=== PATIENT | female | born 1980 | race Caucasian/White ===

== ENCOUNTER 2016-08-21 23:05 | Emergency (ER) | payer BC, MEDICAID ==
--- NOTE | 2016-08-21 23:23 | Emergency Department Record ---
History of Present Illness - General Chief complaint: Dental Stated complaint: DENTAL PAIN Time Seen by Provider: 08/21/16 23:22 Source: Patient Mode of Arrival: Ambulatory Limitations: No limitations - History of Present Illness Initial comments: The patient is here due to having multiple episodes of vomiting today with nausea. She denies any AP, diarrhea, fever, chills, or back pain but does have chronic dental pain. She is concerned that the dental issue is causing the vomiting. She has been taking a lot of Motrin for pain today and feels that may be causing the vomiting. Presently she is feeling better and is only mildly nauseated. The patient is also currently on her Menses. MD complaint: Tooth pain, Other Onset/Timin -: Days(s) Severity scale (1-10): 10 Quality: Aching Consistency: Constant Improves with: None Worsens with: Eating, Other Context- Dental: History of dental caries Associated Symptoms: Other - Related Data Previous Rx's Medication Instructions Recorded Amoxicillin 500 mg PO TID #21 capsule 08/22/16 Naproxen [Naprosyn] 250 mg PO BID #14 tablet 08/22/16 Ondansetron [Zofran Odt] 4 mg SL .Q4-6H PRN #12 tab.rapdis 08/22/16 Allergies Allergy/AdvReac Type Severity Reaction Status Date / Time erythromycin base Allergy RASH Verified 08/21/16 23:16 Travel Screening - Travel/Exposure Within Last 30 Days Have you traveled within the last 30 days?: No - Travel Symptoms Symptom Screening: None Review of Systems Constitutional: Denies: Chills, Fever, Malaise Eyes: Denies: Eye discharge ENT: Denies: Congestion Respiratory: Denies: Cough, Dyspnea Cardiovascular: Denies: Chest pain Past Medical History - SOCIAL HISTORY Smoking Status: Current every day smoker - RESPIRATORY Hx Respiratory Disorders: No - CARDIOVASCULAR Hx Cardio Disorders: No - NEURO Hx Neuro Disorders: No - GI Hx GI Disorders: No - Hx Genitourinary Disorders: No - ENDOCRINE Hx Endocrine Disorders: No - MUSCULOSKELETAL Hx Musculoskeletal Disorders: No - PSYCH Hx Psych Problems: No - HEMATOLOGY/ONCOLOGY Hx Hematology/Oncology Disorders: No Family Medical History Any Significant Family History?: Yes Hx Cancer: Grandparents Hx Heart Disease: Grandparents Hx Stroke: Mother Physical Exam - General General Appearance: Alert, Oriented x3, Cooperative - Head Head exam: Atraumatic, Normocephalic, Normal inspection - Eye Eye exam: Normal appearance, PERRL - ENT Teeth exam: Dental caries (There is chronic dental caries and tender teeth but no abscess evident.) Throat exam: Normal inspection. negative: Tonsillar erythema, Tonsillomegaly - Neck Neck exam: Normal inspection, Full ROM. negative: Lymphadenopathy, Tenderness - Respiratory Respiratory exam: Normal lung sounds bilaterally. negative: Respiratory distress - Cardiovascular Cardiovascular Exam: Regular rate, Normal rhythm, Normal heart sounds - GI/Abdominal GI/Abdominal exam: Soft, Normal bowel sounds. negative: Distended, Guarding, Hernia, Rigid, Tenderness - Extremities Extremities exam: Normal inspection, Full ROM, Normal capillary refill. negative: Tenderness - Neurological Neurological exam: Alert, Normal gait. negative: Abnormal gait, Motor sensory deficit Course Vital Signs 08/21/16 23:17 Temperature 98.0 F Pulse Rate [ 66 Pulse Ox Probe] Respiratory 24 Rate Blood Pressure 141/87 [Left Arm] Pulse Ox 98 - Reevaluation(s) Reevaluation #1: The patient is doing much better at this time. Her nausea is gone and she denies any AP, dental pain or PINEDA. She feels ready for home. I explained to her that I believe the nausea and vomiting were most likely due to the Motrin. We will treat her for a presumed dental infection and have her F/U with a Dentist [facility]. 08/22/16 00:31 Medical Decision Making - Lab Data Result diagrams: 08/21/16 23:45 08/21/16 23:45 Disposition Disposition: Discharge Clinical Impression: Pain, dental Disposition: Home, Self-Care Condition: (1) Good Instructions: Toothache (ED) Additional Instructions: Please stop the Motrin and continue the AMoxicillin with Naprosyn for pain and Zofran for nausea. Please see a Dentist [facility]. Return to the ER if worse. Prescriptions: Amoxicillin 500 mg PO TID #21 capsule Naproxen [Naprosyn] 250 mg PO BID #14 tablet Ondansetron [Zofran Odt] 4 mg SL .Q4-6H PRN #12 tab.rapdis PRN Reason: Nausea Forms: Patient Portal Access Time of Disposition: 00:39
[2016-08-21] MEDS ORDERED: ACETAMINOPHEN 325 MG TAB PO ONE (23:26)
[2016-08-21] MEDS ORDERED: ONDANSETRON 4 MG ODT TABLET SL ONE (23:26)
[2016-08-22] LABS: BASO % 0.4 % (0-6); EOS % 3.6 % (0-6); GRAN % 62.4 % (47-80); HEMATOCRIT 35.6 % (35.0-47.0); HEMOGLOBIN 11.9 gm/dl (11.6-16.0); LYMPH % 24.5 % (16-45); MEAN CELL VOLUME 89.4 fl (81-97); MEAN CORPUSCULAR HEMOGLOBIN 29.9 pg (27-33); MEAN CORPUSCULAR HGB CONC 33.4 g/dl (32-36); MEAN PLATELET VOLUME 11.5 fl (7.4-10.4); MONO % 9.1 % (0-9); PLATELET COUNT 246 K/uL (130-400); RED BLOOD COUNT 3.98 M/uL (3.80-5.40); RED CELL DISTRIBUTION WIDTH 12.8 % (11.5-14.5); URINE APPEARANCE CLEAR; URINE BILIRUBIN NEGATIVE (NEGATIVE); URINE BLOOD SMALL (NEGATIVE); URINE COLOR YELLOW; URINE GLUCOSE (UA) NEGATIVE (NEGATIVE); URINE KETONE NEGATIVE (NEGATIVE); URINE LEUKOCYTE ESTERASE NEGATIVE (NEGATIVE); URINE NITRITE NEGATIVE (NEGATIVE); URINE UROBILINOGEN 0.2 E.U./dL (0.20 - 1.00); WHITE BLOOD COUNT W/O DIFF 7.9 K/uL (4.2-12.2)
[2016-08-22 00:03] LABS: HCG,QUALITATIVE URINE NEGATIVE (NEGATIVE)
[2016-08-22 00:11] LABS: ALBUMIN 4.2 gm/dL (3.5-5.0); ALKALINE PHOSPHATASE 73 U/L (38-126); ALT/SGPT 26 U/L (9-52); ANION GAP 10.4 (7-16); AST/SGOT 15 U/L (14-36); BILIRUBIN,TOTAL 0.41 mg/dL (0.2-1.3); BLOOD UREA NITROGEN 13 mg/dL (7-17); CARBON DIOXIDE 19.6 mmol/L (22-30); CREATININE 1.1 mg/dL (0.52-1.04); EST GLOMERULAR FILTRATION RATE > 60 ml/min; GLUCOSE,RANDOM 87 mg/dL (70-110); LIPASE 122 U/L (23-300); TOTAL PROTEIN 7.3 gm/dL (6.3-8.2)
[2016-08-22 00:14] LABS: URINE MUCUS LIGHT; URINE WHITE BLOOD CELL CAST 0-3 /lpf
[2016-08-22] MEDS ORDERED: AMOXICILLIN 500MG CAPSULE PO ONE (00:29)
== END 2016-08-22 00:56 | disposition home or self-care (01) ==
LOC: ER 23:05
DX: K08.89 Other specified disorders of teeth and supporting structures (principal); R11.2 Nausea with vomiting, unspecified
CPT/HCPCS: 80048; 80076; 81001; 81003; 81025; 83690; 85025; 99283